=== PATIENT | male | born 2000 | race Caucasian/White ===

== ENCOUNTER 2024-03-11 12:52 | Emergency (ER) | payer OTHER ==
[2024-03-11 13:10] VITALS: BP 127/72; PULSE 94; RESP 19; TEMP 97.9; BMI 19.2
[2024-03-11] MEDS ORDERED: DIPHTH,PERTUSS(ACELL),TET VAC 0.5 ML VIAL IM ONE ×2 (13:23→14:13)
[2024-03-11] MEDS: AMOX TR/POT CLAV 875MG/125MG TABLETS (FP) PO ONE (14:30)
[2024-03-11] MEDS: ACETAMINOPHEN 500 MG TABLET (FP) PO ONE (14:44)
[2024-03-11] MEDS ORDERED: ACETAMINOPHEN 500 MG TABLET (FP) ONE (14:46)
[2024-03-11] MEDS: DIPHTH,PERTUSS(ACELL),TET 0.5 ML DISP.SYRIN IM ONE (15:19)
== END 2024-03-11 16:38 | disposition home or self-care (01) ==
LOC: JER 12:52
PROC: 3E0234Z Introduction of Serum, Toxoid and Vaccine into Muscle, Percutaneous Approach (ICD-10-PCS; principal; 2024-03-11)
DX: S81.052A Open bite, left knee, initial encounter (principal); W54.0XXA Bitten by dog, initial encounter; Z23 Encounter for immunization
CPT/HCPCS: 73560-TC-LT-FY; 90471; 90715; 99283-25